=== PATIENT | male | born 1950 ===

== ENCOUNTER 2024-11-06 08:01 | Day surgery (SDC) | payer OTHER ==
[2024-11-06] VITALS (10 sets, daily range): BP systolic 127–156; BP diastolic 59–95
[~2024-11-06] VITALS: Ht 177.8 cm; Wt 91.0 kg
[~2024-11-06 08:01] MED LIST: ASPI81CH PO; ATOR40TA PO; CALC.25 PO; CALCIUM ACETAT667 MG PO; CETI5 PO; Calcium Carbon500 MG PO; ELIQUIS2.5 MG PO; LASIX40 MG PO; METO25ER PO; OMEP20ER PO; Vitamin D1000 UNI1 PO
[2024-11-06] MEDS ORDERED: INSULANI SC (09:41)
[2024-11-06] MEDS ORDERED: Midazolam HCl 1MG / ML 2ML Vial ONE ×2 (10:27→12:03)
[2024-11-06] MEDS ORDERED: FentaNYL Citrate 50 MCG/ML 2 ML Injection ONE (10:27)
[2024-11-06] MEDS ORDERED: Heparin Sodium 1000 Units/ML 10ML MDV ONE (10:28)
[2024-11-06] MEDS ORDERED: NS 250 ML IV ONE (10:28)
[2024-11-06] MEDS ORDERED: Nitroglycerin 2 MG/20 ML BTL ONE (10:28)
[2024-11-06] MEDS ORDERED: NS 2,000 ML IV ONE (10:28)
[2024-11-06] MEDS ORDERED: DiphenhydrAMINE HCl 50 MG/ML 1ML Vial ONE (11:02)
[2024-11-06] MEDS ORDERED: Clopidogrel Bisulfate 300 MG TABLET ONE (12:06)
[2024-11-06] MEDS ORDERED: Mag Hydrox/AL Hydrox/Simeth 30 ML UDC ONE (12:40)
[2024-11-06] MEDS ORDERED: Nitroglycerin 0.4 MG SUBL ONE (12:45)
--- NOTE | 2024-11-06 13:00 | NUR ---
PT BACK TO RECOVERY ROOM. PT KEEPING HEAD DOWN INSTUCTED. ST ELEVATION NOTED ON MONITOR AND 12 LEAD EKG DONE, DR HERNANDEZ IN TO SEE PT. PT HAD SUDDEN "HEART BURN" PAIN THAT STARTED UPON RETURNING TO RECOVERY ROOM. EKG DONE. PT PT WAS GIVEN 0.4 NITRO TAB X2 FOR 2/10 CP.
--- NOTE | 2024-11-06 13:07 | NUR ---
PT GIVEN MAYLOX AND REPEAT EKG DONE AND SHOWN TO DR HERNANDEZ. DENIES CP AT THIS TIME. RUFINO B/L ARE SOFT NON TENDER. NO HEMATOMA OR BLEEDING NOTED.
--- NOTE | 2024-11-06 13:35 | NUR ---
ASSUMED CARE OF PT. PT IS AWAKE AND ALERT AND ORIENTED, REPORTS CP RESOLVED; AND DENIES ANY OTHER DISCOMFORT. MONITOR AFLUTTER 90'S, B/P 146/75, SPO2 96 % RA. L GROIN NO SWELLING/HEMATOMA, TEGADERM DRSG INTACT; LLE: 1 + DP, PT DOP. R GROIN NO SWELLING/HEMATOMA, TEGADERM DRSG INTACT; RLEl: DOPPLER X 2. PT'S AT BEDSIDE, ATTENTIVE.
[2024-11-06 14:12] LABS: Bun/Creatinine Ratio 6.4 (12.0-20.0); Calcium, Blood 9.6 mg/dL (8.5-10.1); Creatinine, Blood 10.5 mg/dL (0.60-1.20); Potassium, Blood 6.2 mmol/L (3.5-5.5)
--- NOTE | 2024-11-06 14:15 | NUR ---
DR HUGHES NOTIFIED OF CRITICAL POTASSIUM AND CREATNINE-PT IS SCHEDULED FOR DIALYSIS TOMORROW. PT ASYMPTOMATIC WITH ABNORMAL LABE. PT OK TO DISCHAGE AND HAVE SCHEDULED DIALYSIS TOMORROW.
--- NOTE | 2024-11-06 15:05 | NUR ---
PT'S HOB ELEVATED, SITES UNCHANGED.
--- NOTE | 2024-11-06 15:40 | NUR ---
PT DRESSED SELF WITHOUT ISSUE, SITES UNCHANGED; IV REMOVED-CANNULA INTACT.
--- NOTE | 2024-11-06 15:47 | NUR ---
PT AND RECEIVED DISCHARGE INSTRUCTIONS, MED LIST AND AFTER CARE INSTRUCTIONS; VERBALIZED GOOD UNDERSTANDING. PT LEFT FACILITY VIA W/C, CONDITION STABLE.
== END 2024-11-06 15:56 | disposition home or self-care (01) ==
LOC: MHTC 08:01 → ORSCMMR 08:02 → MHTC 08:09
PROVIDERS: Student in an Organized Health Care Education/Training Program
DX: E11.51 Type 2 diabetes mellitus with diabetic peripheral angiopathy without gangrene (principal); E11.621 Type 2 diabetes mellitus with foot ulcer; L97.412 Non-pressure chronic ulcer of right heel and midfoot with fat layer exposed; I12.0 Hypertensive chronic kidney disease with stage 5 chronic kidney disease or end stage renal disease; E11.22 Type 2 diabetes mellitus with diabetic chronic kidney disease; N18.6 End stage renal disease; Z87.891 Personal history of nicotine dependence; Z88.8 Allergy status to other drugs, medicaments and biological substances; Z79.01 Long term (current) use of anticoagulants; Z79.82 Long term (current) use of aspirin; Z79.899 Other long term (current) drug therapy
CPT/HCPCS: 36140; 36200; 75625; 75710; 75716; 76937; 80048; 82947; 84484; 93005; 93010; 99152; 99153; A9270; C1725; C1760; C1769; C1887; C9764; J1200; J1644; J2250; J3010; J7030; J7050; Q9967